=== PATIENT | male | born 1975 | race African-American/Black ===

== ENCOUNTER 2017-10-16 08:34 | Outpatient (CLI) | payer BC ==
[2017-10-16 13:25] LABS: BASOPHILS % (AUTO) 0.5 %; EOSINOPHILS # (AUTO) 0.2 10^3/uL (0.0-0.7); EOSINOPHILS % (AUTO) 3.5 %; HGB - HEMOGLOBIN 15.2 g/dL (14.0-18.0); LYMPHOCYTES # (AUTO) 1.6 10^3/uL (1.5-3.5); LYMPHOCYTES % (AUTO) 35.9 %; MEAN CORPUSCULAR HEMOGLOBIN 30.2 pg (27.0-31.0); MEAN CORPUSCULAR HGB CONC 33.7 g/dL (32.0-36.0); MEAN CORPUSCULAR VOLUME 89.7 fL (80.0-94.0); MEAN PLATELET VOLUME 10.8 fL (7.4-11.4); MONOCYTES # (AUTO) 0.4 10^3/uL (0.0-1.0); MONOCYTES % (AUTO) 9.6 %; NEUTROPHILS # (AUTO) 2.2 10^3/uL (1.5-6.6); NEUTROPHILS % (AUTO) 50.5 %; PLT - PLATELET COUNT 127 10^3/uL (130-450); RED BLOOD COUNT 5.04 10^6/uL (4.70-6.10); RED CELL DISTRIBUTION WIDTH 12.8 % (12.0-15.0); WHITE BLOOD COUNT 4.4 x10^3/uL (4.8-10.8)
[2017-10-16 13:32] LABS: THYROID STIMULATING HORMONE 1.05 uIU/mL (0.34-5.60)
[2017-10-16 13:34] LABS: FREE T4 (FREE THYROXINE) 0.76 ng/dL (0.58-1.64)
[2017-10-16 13:35] LABS: ALBUMIN 4.2 g/dL (3.2-5.5); ALBUMIN/GLOBULIN RATIO 1.3 (1.0-2.2); BILIRUBIN,TOTAL 0.9 mg/dL (0.2-1.0); CALCIUM 9.1 mg/dL (8.5-10.3); CREATININE 0.9 mg/dL (0.6-1.2); TOTAL PROTEIN 7.5 g/dL (6.7-8.2)
== END 2017-10-16 08:35 | disposition home or self-care (01) ==
LOC: LAB.WCP 08:34
PROVIDERS: ATTEND Family Medicine
DX: M54.2 Cervicalgia (principal)
CPT/HCPCS: 36415; 80053; 84439; 84443; 84481; 85025; 86800

== ENCOUNTER 2019-03-19 16:43 | Outpatient (CLI) | payer BC | END 2019-03-19 16:44 | disposition home or self-care (01) | LOC: LAB 16:43 | PROVIDERS: ATTEND Nurse Practitioner Family | DX: R42 Dizziness and giddiness (principal) | CPT/HCPCS: 80053; 80061; 83721; 84443; 85025 ==

== ENCOUNTER 2019-05-11 13:50 | Emergency (ER) | payer BC ==
--- NOTE | 2019-05-11 14:24 | ED Physician Documentation ---
PD HPI CHEST PAIN - Stated complaint Stated Complaint: CHEST PAIN - Chief complaint Chief Complaint: Cardiac - History obtained from History obtained from: Patient - History of Present Illness Timing - onset: How many months ago (1) Timing - details: Gradual onset (more often the past week), Intermittant Quality: Aching, Sharp, Pain Location: Left chest (in pectoral/ lateral breast area.) Radiation: Neck (anterior). No: Jaw Worsened by: Other (occuring randomly and most often occurs while at rest. He has worked out in gym regularly and has not felt the pain exertionally.). No: Exertion, Inspiration, Eating, Palpation Similar symptoms before: Has not had sx before Recently seen: Not recently seen Review of Systems Constitutional: denies: Fever, Chills, Myalgias Nose: denies: Rhinorrhea / runny nose, Congestion Throat: denies: Sore throat Cardiac: reports: Chest pain / pressure. denies: Palpitations, Pedal edema, Calf pain Respiratory: denies: Dyspnea, Cough, Wheezing GI: reports: Nausea. denies: Abdominal Pain, Vomiting Skin: denies: Rash, Lesions PD PAST MEDICAL HISTORY - Past Medical History Past Medical History: No - Past Surgical History Past Surgical History: No - Present Medications Home Medications: Ambulatory Orders Medication Instructions Recorded Confirmed Naproxen 500 mg PO BID #20 tablet 05/11/19 Tramadol HCl 50 mg PO Q6H PRN #15 tablet 05/11/19 - Allergies Allergies/Adverse Reactions: Allergies Allergy/AdvReac Type Severity Reaction Status Date / Time No Known Drug Allergies Allergy Verified 05/11/19 13:55 - Social History Does the pt smoke?: No Smoking Status: Never smoker Does the pt drink ETOH?: No Does the pt have substance abuse?: No - Immunizations Immunizations are current?: Yes - POLST Patient has POLST: No PD ED PE NORMAL - Vitals Vital signs reviewed: Yes - General General: Alert and oriented X 3, No acute distress, Well developed/nourished - HEENT HEENT: Moist mucous membranes, Pharynx benign - Neck Neck: Supple, no meningeal sign, No bony TTP, No adenopathy, No JVD - Cardiac Cardiac: RRR, No murmur - Respiratory Respiratory: Clear bilaterally, Other (no chestwall tenderness to palpation. No rash nor sores. ) Results - Vitals Vitals: Vital Signs - 24 hr 05/11/19 05/11/19 05/11/19 13:55 14:00 15:58 Temperature 37.0 C Heart Rate 55 L 55 L 55 L Respiratory 16 16 16 Rate Blood Pressure 141/61 H 141/61 H 138/60 H O2 Saturation 100 100 100 Oxygen O2 Source Room air - EKG (time done) 13;57 Rate: Rate (enter#) (51) Rhythm: Sinus bradycardia [place]: Normal Intervals: Normal DE QRS: Normal Ischemia: Normal ST segments, ST elevation c/w repol, Non specific changes. No: ST depression - Labs Labs: Laboratory Tests 05/11/19 05/11/19 05/11/19 14:30 14:30 14:30 WBC 4.5 L RBC 5.11 Hgb 15.5 Hct 47.3 MCV 92.6 MCH 30.3 MCHC 32.8 RDW 12.4 Plt Count 138 MPV 12.0 H Neut # (Auto) 2.3 Lymph # (Auto) 1.7 [place] # (Auto) 0.4 Eos # (Auto) 0.1 Baso # (Auto) 0.0 Absolute Nucleated RBC 0.00 Nucleated RBC % 0.0 Sodium 140 Potassium 3.5 Chloride 103 Carbon Dioxide 30 Anion Gap 7.0 BUN 15 Creatinine 0.9 Estimated GFR (MDRD) 112 Glucose 81 Calcium 9.2 Total Bilirubin 0.8 AST 25 ALT 27 Alkaline Phosphatase 51 Troponin I High Sens < 2.3 L B-Natriuretic Peptide Total Protein 7.4 Albumin 4.6 Globulin 2.8 Albumin/Globulin Ratio 1.6 Lipase 44 05/11/19 14:30 WBC RBC Hgb Hct MCV MCH MCHC RDW Plt Count MPV Neut # (Auto) Lymph # (Auto) [place] # (Auto) Eos # (Auto) Baso # (Auto) Absolute Nucleated RBC Nucleated RBC % Sodium Potassium Chloride Carbon Dioxide Anion Gap BUN Creatinine Estimated GFR (MDRD) Glucose Calcium Total Bilirubin AST ALT Alkaline Phosphatase Troponin I High Sens B-Natriuretic Peptide 9 Total Protein Albumin Globulin Albumin/Globulin Ratio Lipase - Rads (name of study) chest xray Radiology: Prelim report reviewed (no acute process), See rad report PD MEDICAL DECISION MAKING - ED course Complexity details: reviewed results, considered differential, d/w patient Departure - Departure Disposition: 01 Home, Self Care Clinical Impression: Left-sided chest pain Condition: Stable Record reviewed to determine appropriate education?: Yes Instructions: ED Chest Pain Atypical Unkn Cause Follow-Up: MABLE WE[facility], MSN, [employer] [Primary Care Provider] - Prescriptions: Naproxen 500 mg PO BID #20 tablet Tramadol HCl 50 mg PO Q6H PRN #15 tablet PRN Reason: Pain Comments: Your EKG, chest x-ray, blood tests are normal. These tests exclude more sick significant causes of the chest pain such as pneumonia, collapsed lung, heart attack, heart failure or fluid around the heart and lung. With those excluded, will presume your chest pain is musculoskeletal and treated with anti-inflammatories of naproxen twice daily for 10 days. To that add Tylenol or tramadol if needed for pains. Recheck if not improved over the next several days to week. Activity as tolerated. Follow-up with your primary care. Discharge Date/Time: 05/11/19 15:58
[2019-05-11 14:58] LABS: BASOPHILS % (AUTO) 0.7 %; EOSINOPHILS # (AUTO) 0.1 10^3/uL (0.0-0.7); EOSINOPHILS % (AUTO) 3.1 %; HGB - HEMOGLOBIN 15.5 g/dL (14.0-18.0); LYMPHOCYTES # (AUTO) 1.7 10^3/uL (1.5-3.5); LYMPHOCYTES % (AUTO) 37.2 %; MEAN CORPUSCULAR HEMOGLOBIN 30.3 pg (27.0-31.0); MEAN CORPUSCULAR HGB CONC 32.8 g/dL (32.0-36.0); MEAN CORPUSCULAR VOLUME 92.6 fL (80.0-94.0); MONOCYTES # (AUTO) 0.4 10^3/uL (0.0-1.0); MONOCYTES % (AUTO) 7.8 %; NEUTROPHILS # (AUTO) 2.3 10^3/uL (1.5-6.6); PLT - PLATELET COUNT 138 10^3/uL (130-450); RED BLOOD COUNT 5.11 10^6/uL (4.70-6.10); RED CELL DISTRIBUTION WIDTH 12.4 % (12.0-15.0); WHITE BLOOD COUNT 4.5 x10^3/uL (4.8-10.8)
[2019-05-11 15:13] LABS: ALBUMIN 4.6 g/dL (3.2-5.5); ALBUMIN/GLOBULIN RATIO 1.6 (1.0-2.2); BILIRUBIN,TOTAL 0.8 mg/dL (0.2-1.0); CALCIUM 9.2 mg/dL (8.5-10.3); CREATININE 0.9 mg/dL (0.6-1.2); TOTAL PROTEIN 7.4 g/dL (6.7-8.2)
--- NOTE | 2019-05-11 15:23 | XRAY Report ---
Reason: dyspnea/ cough Procedure Date: 05/11/2019 Accession Number: [id number] / [id number] Procedure: XR - Chest 2 View X-Ray CPT Code: 45600 Final Report FULL RESULT: EXAM: CHEST RADIOGRAPHY EXAM DATE: 05/11/2019 03:00 PM. CLINICAL HISTORY: Dyspnea/ cough. COMPARISON: None. TECHNIQUE: 2 views. FINDINGS: Lungs/Pleura: Mildly hyperexpanded, but clear. No effusion or pneumothorax. Mediastinum: Heart and mediastinal contours are unremarkable. Upper lobe vessels not distended. Other: None. IMPRESSION: No acute disease. RADIA
[2019-05-11] MEDS ORDERED: ACETAMINOPHEN 325 MG TABLET PO STA (15:39)
[2019-05-11] MEDS ORDERED: IBUPROFEN 600 MG TABLET PO STA (15:39)
[2019-05-11 15:59] VITALS: BP 138/60
== END 2019-05-11 15:58 | disposition home or self-care (01) ==
LOC: ED 13:50
DX: R07.9 Chest pain, unspecified (principal); R00.1 Bradycardia, unspecified
CPT/HCPCS: 36415; 71046; 80053; 83690; 83880; 84484; 85025; 93005; 99283; 99284; A9270

== ENCOUNTER 2020-01-11 09:10 | Outpatient (CLI) | payer OTHER | END 2020-01-11 23:59 | disposition home or self-care (01) | LOC: COV 09:10 | PROVIDERS: ATTEND Family Medicine | DX: Z20.828 Contact with and (suspected) exposure to other viral communicable diseases (principal) ==

== ENCOUNTER 2021-02-20 08:25 | Outpatient (CLI) | payer OTHER ==
[2021-02-20 12:20] LABS: BILIRUBIN,URINE NEGATIVE (NEGATIVE); GLUCOSE, URINE (UA) NEGATIVE (NEGATIVE); KETONES,URINE (UA) NEGATIVE (NEGATIVE); LEUKOCYTE ESTERASE, URINE NEGATIVE (NEGATIVE); NITRITE,URINE NEGATIVE (NEGATIVE); OCCULT BLOOD,URINE NEGATIVE (NEGATIVE); PROTEIN,URINE NEGATIVE (NEGATIVE); UROBILINOGEN,URINE 0.2 (NORMAL) E.U./dL (NORMAL)
[2021-02-20 12:32] LABS: BASOPHILS % (AUTO) 0.5 %; EOSINOPHILS # (AUTO) 0.2 10^3/uL (0.0-0.7); EOSINOPHILS % (AUTO) 6.2 %; HCT - HEMATOCRIT 48.3 % (42.0-52.0); HGB - HEMOGLOBIN 16.2 g/dL (14.0-18.0); LYMPHOCYTES # (AUTO) 1.6 10^3/uL (1.5-3.5); LYMPHOCYTES % (AUTO) 42.9 %; MEAN CORPUSCULAR HEMOGLOBIN 31.4 pg (27.0-31.0); MEAN CORPUSCULAR HGB CONC 33.5 g/dL (32.0-36.0); MEAN CORPUSCULAR VOLUME 93.6 fL (80.0-94.0); MONOCYTES # (AUTO) 0.4 10^3/uL (0.0-1.0); MONOCYTES % (AUTO) 11.5 %; NEUTROPHILS # (AUTO) 1.4 10^3/uL (1.5-6.6); NEUTROPHILS % (AUTO) 38.6 %; PLT - PLATELET COUNT 152 10^3/uL (130-450); RED BLOOD COUNT 5.16 10^6/uL (4.70-6.10); RED CELL DISTRIBUTION WIDTH 12.4 % (12.0-15.0); WHITE BLOOD COUNT 3.7 x10^3/uL (4.8-10.8)
[2021-02-20 12:47] LABS: ALBUMIN 4.4 g/dL (3.2-5.5); ALBUMIN/GLOBULIN RATIO 1.3 (1.0-2.2); ALKALINE PHOSPHATASE 42 IU/L (42-121); ALT ALANINE AMINOTRANSFERASE 28 IU/L (10-60); AST ASPARTATE AMINOTRANSFERASE 26 IU/L (10-42); BILIRUBIN,TOTAL 1.7 mg/dL (0.2-1.0); BUN - BLOOD UREA NITROGEN 14 mg/dL (6-20); CALCIUM 9.4 mg/dL (8.5-10.3); CARBON DIOXIDE - CO2 30 mmol/L (21-32); CHLORIDE 103 mmol/L (101-111); CHOL/HDL RATIO 3.7 (<5.0); CHOLESTEROL 234 mg/dL; CREATININE 1.1 mg/dL (0.6-1.2); GAMMA GLUTAMYL TRANSPEPTIDASE 20 IU/L (8-55); GFR - MDRD 88 (>89); GLUCOSE 98 mg/dL (70-100); HDL CHOLESTEROL 63 mg/dL; LDL CHOLESTEROL,CALCULATED 141 mg/dL; LDL/HDL RATIO 2.2 (<3.6); POTASSIUM 4.6 mmol/L (3.5-5.0); SODIUM 139 mmol/L (135-145); TOTAL PROTEIN 7.8 g/dL (6.7-8.2); TRIGLYCERIDES 149 mg/dL; VLDL CHOLESTEROL 30 mg/dL
[2021-02-20 12:48] LABS: BACTERIA,URINE Rare /HPF (None Seen); CLARITY,URINE CLEAR (CLEAR); MUCUS,URINE Few Strands; RBC,URINE None Seen /HPF (0-5); SQUAMOUS EPITHELIAL CELL,UR NONE SEEN (<= Few); WBC,URINE 0-3 /HPF (0-3)
[2021-02-20 12:49] LABS: ESTIMATED AVERAGE GLUCOSE 117 mg/dL (70-100); HEMOGLOBIN A1c% 5.7 % (4.27-6.07)
[2021-02-21 13:46] LABS: HIV AG/AB 4TH GEN NON-REACTIVE (NON-REACTIVE)
== END 2021-02-20 08:26 | disposition home or self-care (01) ==
LOC: LAB.N 08:25
PROVIDERS: ATTEND Family Medicine
DX: Z00.00 Encounter for general adult medical examination without abnormal findings (principal)
CPT/HCPCS: 36415; 80053; 80061; 81001; 82977; 83036; 83721; 85025; 85651; 87389

== ENCOUNTER 2021-03-02 12:26 | Outpatient (CLI) | payer OTHER ==
--- NOTE | 2021-03-02 16:14 | XRAY Report ---
PROCEDURE: Chest 2 View X-Ray INDICATIONS: PHYSICAL EXAMINATION TECHNIQUE: 2 view(s) of the chest. COMPARISON: CXR 05/11/2019. FINDINGS: Surgical changes and devices: None. Lungs and pleura: No pleural effusions or pneumothorax. Lungs are clear. Mediastinum: Mediastinal contours are normal. Heart size is normal. Bones and chest wall: No suspicious bony abnormalities. Soft tissues appear unremarkable. IMPRESSION: No acute cardiopulmonary abnormality. Reviewed by: Gibson Mcrae MD on 03/02/2021 3:12 PM [facility] Approved by: Gibson Mcrae MD on 03/02/2021 3:12 PM [facility] Station ID: [id number]
--- NOTE | 2021-03-02 16:16 | XRAY Report ---
PROCEDURE: Knee 4 View RT INDICATIONS: INTERNAL DERANGEMENT OF RIGHT KNEE TECHNIQUE: 4 views of the right knee(s) were acquired. One view of the left knee. COMPARISON: None. FINDINGS: Bones: No fractures or dislocations. Small patellar osteophytes. No suspicious bony lesions. Soft tissues: Small joint effusion. No suspicious soft tissue calcifications. IMPRESSION: No fracture identified. Small joint effusion. Mild DJD. Consider further evaluation with MRI of the knee for internal derangement. Reviewed by: Gibson Mcrae MD on 03/02/2021 3:14 PM [facility] Approved by: Gibson Mcrae MD on 03/02/2021 3:14 PM [facility] Station ID: [id number]
== END 2021-03-02 12:27 | disposition home or self-care (01) ==
LOC: DI.N 12:26
PROVIDERS: ATTEND Family Medicine
DX: Z00.00 Encounter for general adult medical examination without abnormal findings (principal); M23.91 Unspecified internal derangement of right knee; M25.461 Effusion, right knee

== ENCOUNTER 2023-10-24 10:09 | Outpatient (CLI) | payer OTHER ==
[2023-10-24 19:16] LABS: BASOPHILS % (AUTO) 0.7 %; EOSINOPHILS # (AUTO) 0.1 10^3/uL (0.0-0.7); EOSINOPHILS % (AUTO) 2.9 %; HCT - HEMATOCRIT 46.3 % (42.0-52.0); HGB - HEMOGLOBIN 14.8 g/dL (14.0-18.0); LYMPHOCYTES # (AUTO) 1.3 10^3/uL (1.5-3.5); LYMPHOCYTES % (AUTO) 42.8 %; MEAN CORPUSCULAR HEMOGLOBIN 29.9 pg (27.0-31.0); MEAN CORPUSCULAR VOLUME 93.5 fL (80.0-94.0); MEAN PLATELET VOLUME 12.6 fL (7.4-11.4); MONOCYTES # (AUTO) 0.3 10^3/uL (0.0-1.0); MONOCYTES % (AUTO) 9.5 %; NEUTROPHILS # (AUTO) 1.4 10^3/uL (1.5-6.6); NEUTROPHILS % (AUTO) 44.1 %; PLT - PLATELET COUNT 133 10^3/uL (130-450); RED BLOOD COUNT 4.95 10^6/uL (4.70-6.10); RED CELL DISTRIBUTION WIDTH 12.5 % (12.0-15.0); WHITE BLOOD COUNT 3.1 x10^3/uL (4.8-10.8)
[2023-10-24 19:33] LABS: ALBUMIN 4.5 g/dL (3.2-5.5); ALBUMIN/GLOBULIN RATIO 1.5 (1.0-2.2); ALKALINE PHOSPHATASE 45 IU/L (42-121); ALT ALANINE AMINOTRANSFERASE 23 IU/L (10-60); AST ASPARTATE AMINOTRANSFERASE 24 IU/L (10-42); BILIRUBIN,TOTAL 0.8 mg/dL (0.2-1.0); BILIRUBIN,URINE NEGATIVE (NEGATIVE); BUN - BLOOD UREA NITROGEN 20 mg/dL (6-20); CALCIUM 9.5 mg/dL (8.5-10.3); CARBON DIOXIDE - CO2 31 mmol/L (21-32); CHLORIDE 104 mmol/L (101-111); CHOL/HDL RATIO 3.7 (<5.0); CHOLESTEROL 216 mg/dL; CREATININE 1.2 mg/dL (0.6-1.3); GFR - MDRD 79 (>89); GLUCOSE 94 mg/dL (74-104); GLUCOSE, URINE (UA) NEGATIVE (NEGATIVE); HDL CHOLESTEROL 58 mg/dL; KETONES,URINE (UA) NEGATIVE (NEGATIVE); LDL CHOLESTEROL,CALCULATED 137 mg/dL; LDL/HDL RATIO 2.4 (<3.6); LEUKOCYTE ESTERASE, URINE NEGATIVE (NEGATIVE); NITRITE,URINE NEGATIVE (NEGATIVE); OCCULT BLOOD,URINE NEGATIVE (NEGATIVE); PH,URINE 7.5 PH (5.0-7.5); POTASSIUM 4.2 mmol/L (3.5-4.5); PROTEIN,URINE NEGATIVE (NEGATIVE); SODIUM 138 mmol/L (135-145); TOTAL PROTEIN 7.6 g/dL (6.4-8.9); TRIGLYCERIDES 104 mg/dL (48-352); UROBILINOGEN,URINE 0.2 (NORMAL) E.U./dL (NORMAL); VLDL CHOLESTEROL 21 mg/dL
[2023-10-24 19:41] LABS: AMORPHOUS SEDIMENT,UR Few /LPF; BACTERIA,URINE None Seen /HPF (None Seen); CLARITY,URINE CLEAR (CLEAR); RBC,URINE None Seen /HPF (0-5); SQUAMOUS EPITHELIAL CELL,UR NONE SEEN (<= Few); WBC,URINE 0-3 /HPF (0-3)
[2023-10-25 08:21] LABS: ESTIMATED AVERAGE GLUCOSE 123 mg/dL (70-100); HEMOGLOBIN A1c% 5.9 % (4.27-6.07)
== END 2023-10-24 10:10 | disposition home or self-care (01) ==
LOC: LAB.N 10:09
PROVIDERS: ATTEND Nurse Practitioner Family
DX: Z00.00 Encounter for general adult medical examination without abnormal findings (principal); R35.1 Nocturia; Z83.3 Family history of diabetes mellitus; Z13.1 Encounter for screening for diabetes mellitus; Z12.5 Encounter for screening for malignant neoplasm of prostate
CPT/HCPCS: 36415; 80053; 80061; 81001; 83036; 83721; 84153; 84443; 85025; 87086

== ENCOUNTER 2024-02-23 07:26 | Day surgery (SDC) | payer OTHER ==
--- NOTE | 2024-02-22 07:14 | HISTORY & PHYSICAL EXAMINATION ---
PMH/PSH - Past Medical History MRSA Hx?: No Social & Family Hx - Social History Does the pt smoke?: No Smoking Status: Never smoker Does the pt drink ETOH?: No Does the pt have substance abuse?: No - POLST Patient has POLST: No Meds/Allgy - Allergies Allergies/Adverse Reactions: Allergies Allergy/AdvReac Type Severity Reaction Status Date / Time No Known Drug Allergies Allergy Verified 05/11/19 13:55 Impression/Plan - Problem List Problem List: Pre-op H&P I am asked to see Bertrand for a screening colonoscopy examination. GI symptoms: None Family history of colon cancer/polyps: No Personal history of colon polyps: N/A Last colonoscopy examination: Never Anticoagulant use: None Meds: None Allergies: None PMH: Diet controlled diabetes PSH: None SH: Cig: None ETOH: N/A The Past Family, Social and Personal History has been reviewed with the patient. ROS Denies fevers, chills, night sweats, shortness of breath, chest pain, change in the color of skin or urine, diarrhea, constipation, hematemesis, hematochezia, headache, visual changes, muscle aches. PE VSS, Afeb HEENT: Pupils equal, round and reactive to light, sclera anicteric, normal hearing, oral mucous membranes moist and without lesions NECK: Supple without lymphadenopathy, thyromegaly or carotid bruits LUNGS: Clear to auscultation without wheezing HEART: NSR without murmurs CHEST: Equal and symmetric expansion, no rib pain ABD: Soft, nontender, no hepatosplenomegaly, no hernias GROIN: No hernias or lymphadenopathy EXTREMITIES: Normal neuro and muscular exam SKIN: Anicteric Radiologic Studies N/A Assessment: Request for a screening colonoscopy examination. Plan: Screening colonoscopy under sedation through the Day Surgery admission protocol at [facility]. Consent: Bertrand has been counseled for the procedure, it's indications, risks, benefits and expected outcome as well as alternative therapies. We specifically discussed risks associated with anesthesia and insertion of the endoscope into the large intestine which includes bleeding and injury to the colon which may require surgical intervention. Bertrand understands, agrees, and consents to the proposed operative strategy and requests that we proceed with the procedure as outlined in our discussion. Salvatore Dixon MD, [facility] General Surgery Service
[2024-02-23] MEDS: LACTATED RINGERS 1,000 ML IV ONE (07:31)
[2024-02-23] MEDS ORDERED: SIMETHICONE 40 MG/0.6 ML 30 ML BOTTLE ONE (07:33)
[2024-02-23 07:52] VITALS: O2SAT 100
[2024-02-23] MEDS ORDERED: MIDAZOLAM 2 MG/2 ML VIAL ONE (08:22)
[2024-02-23] MEDS ORDERED: PROPOFOL 500 MG/50 ML 500 MG/50 ML VIAL ONE (08:23)
[2024-02-23] MEDS ORDERED: LIDOCAINE-MPF 2% 5 ML VIAL ONE (08:23)
--- NOTE | 2024-02-23 08:27 | ANESTHESIA ---
Pre-Anesthesia VS, & Labs - Diagnosis screening - Procedure colonoscopy Vital Signs: Temp Pulse Resp BP Pulse Ox O2 Flow Rate 36.4 C L 58 L 16 125/62 100 02/23/24 07:43 02/23/24 07:43 02/23/24 07:43 02/23/24 07:43 02/23/24 07:43 Height: 5 ft 7 in Weight (kg): 77 kg Body Mass Index: 26.6 BMI Classification: Overweight - NPO >8 hours Last Fluid Intake: amprep - Lab Results Lab results reviewed: Yes Home Medications and Allergies Allergies/Adverse Reactions: Allergies Allergy/AdvReac Type Severity Reaction Status Date / Time No Known Drug Allergies Allergy Verified 05/11/19 13:55 Anes History & Medical History - Anesthetic History Anesthesia Complications: reports: No previous complications Family history of Anesthesia Complications: Denies Family history of Malignant Hyperthermia: Denies - Medical History Cardiovascular: reports: None Pulmonary: reports: None Gastrointestinal: reports: None Urinary: reports: None Musculoskeletal: reports: None Endocrine/Autoimmune: reports: None Skin: reports: None Smoking Status: Never smoker Exam General: Alert, Oriented x3, Cooperative Dental: WNL Mouth Openin Fingerbreadth Neck Mobility: Normal Mallampati classification: II Thyromental Distance: 4-6 cm Respiratory: Lungs clear, Normal breath sounds Cardiovascular: Regular rate (dena at 45) Neurological: Normal speech Mental/Cognitive Status: Alert/Oriented X3, Normal for patient Cognitive Status: Within normal limits Plan Anesthesia Type: Total IV Consent for Procedure(s) Verified and Reviewed: Yes Code Status: Attempt Resuscitation ASA classification: 1-Healthy patient Is this case an emergency?: No
[2024-02-23] MEDS ORDERED: GLYCOPYRROLATE 1 MG/5 ML VIAL ONE (08:50)
[2024-02-23] MEDS: LACTATED RINGERS 300 ML IV ONE (09:23)
--- NOTE | 2024-02-23 09:45 | ANESTHESIA POST OP EVALUATION ---
Anesthesia Post Eval - Post Anesthesia Eval Vitals: Last Vital Signs Temp 36.2 C L 02/23/24 09:40 Pulse 59 L 02/23/24 09:40 Resp 16 02/23/24 09:40 BP 108/63 02/23/24 09:40 Pulse Ox 100 02/23/24 09:40 O2 Flow Rate CV Function Including HR & BP: Stable Pain Control: Satisfactory Nausea & Vomiting: Negative Mental Status: Baseline Respiratory Status: Airway Patent Hydration Status: Satisfactory Anesthesia Complications: None
[2024-02-23 09:59] VITALS: BP 107/68
== END 2024-02-23 07:27 | disposition home or self-care (01) ==
LOC: SDS 07:26
PROVIDERS: ATTEND Surgery
DX: Z12.11 Encounter for screening for malignant neoplasm of colon (principal)
CPT/HCPCS: A9270; G0121; J7120